=== PATIENT | female | born 1965 | race Caucasian/White ===

== ENCOUNTER → 2021-11-21 | Outpatient (CLI) | payer OTHER | END | disposition home or self-care (01) | LOC: RAH 08:36 | PROVIDERS: ATTEND Urology | DX: N20.0 Calculus of kidney (principal); Z96.0 Presence of urogenital implants | CPT/HCPCS: 74018; 76100 ==

== ENCOUNTER → 2021-12-05 | Outpatient (CLI) | payer OTHER | END | disposition home or self-care (01) | LOC: RAH 09:49 | PROVIDERS: ATTEND Urology | DX: N20.0 Calculus of kidney (principal); N99.528 Other complication of incontinent external stoma of urinary tract | CPT/HCPCS: 74018; 76100 ==

== ENCOUNTER → 2021-12-23 | Outpatient (CLI) | payer OTHER | END | disposition home or self-care (01) | LOC: RAH 08:14 | PROVIDERS: ATTEND Urology | DX: N20.0 Calculus of kidney (principal) | CPT/HCPCS: 74018; 76100 ==

== ENCOUNTER → 2022-01-14 | Outpatient (CLI) | payer OTHER | END | disposition home or self-care (01) | LOC: RAH 10:58 | PROVIDERS: ATTEND Urology | DX: N20.0 Calculus of kidney (principal) | CPT/HCPCS: 74018; 76100 ==

== ENCOUNTER → 2022-04-21 | Outpatient (CLI) | payer OTHER | END | disposition home or self-care (01) | LOC: RAH 08:41 | PROVIDERS: ATTEND Urology | DX: N28.89 Other specified disorders of kidney and ureter (principal); Z98.890 Other specified postprocedural states | CPT/HCPCS: 74018; 76100 ==

== ENCOUNTER → 2022-10-30 | Outpatient (CLI) | payer OTHER | END | disposition home or self-care (01) | LOC: RAH 10-28 09:19 | PROVIDERS: ATTEND Urology | DX: N20.0 Calculus of kidney (principal) | CPT/HCPCS: 74018; 76100 ==

== ENCOUNTER → 2023-06-12 | Outpatient (CLI) | payer OTHER | END | disposition home or self-care (01) | LOC: RAH 11:57 | PROVIDERS: ATTEND Urology | DX: N20.0 Calculus of kidney (principal) | CPT/HCPCS: 74018; 76100 ==

== ENCOUNTER → 2024-08-18 | Outpatient (CLI) | payer OTHER, SELFPAY ==
--- NOTE | 2024-08-18 11:10 | HMCIMG ---
Exam Type: abdomen supine tomograms Tomogram planes done at 10, 11, 12, 13, 14, and 15 cm. Clinical Information: CALCULUS OF KIDNEY Comparison: None. Findings: 12 mm elongated calculus of the left renal lower pole region seen. The limited visualization of the rest of the abdomen structures is unremarkable. Surgical stevenson of the right lower quadrant are seen possibly related to prior appendectomy. Please correlate. IMPRESSION: Left lower pole calculus.
== END | disposition home or self-care (01) ==
LOC: RAH 10:10
PROVIDERS: ATTEND Urology
DX: N20.0 Calculus of kidney (principal)
CPT/HCPCS: 74018; 76100

== ENCOUNTER → 2024-11-17 | Outpatient (CLI) | payer SELFPAY ==
--- NOTE | 2024-11-18 07:32 | HMCIMG ---
EXAM: CR Abdomen (KUB), 1 view. CLINICAL HISTORY: CALCULUS OF KIDNEY. COMPARISON: None provided. FINDINGS: Radio-opaque sutures are seen in right iliac fossa region. Focal opacity is seen in lower pole of left kidney region. - likely calculus should be ruled out with sonography. Nonobstructed nonspecific bowel gas pattern. No free air is evident. No abnormal calcification. No aggressive appearing osseous lesion. IMPRESSION: Radio-opaque sutures are seen in right iliac fossa region. Focal opacity is seen in lower pole of left kidney region - calculus should be ruled out with sonography. /[place]
--- NOTE | 2024-11-18 07:32 | HMCIMG ---
EXAM: CR Abdomen (KUB), 1 view. CLINICAL HISTORY: CALCULUS OF KIDNEY COMPARISON: None provided. FINDINGS: Nonobstructed nonspecific bowel gas pattern. No free air is evident. No abnormal calcification. No aggressive appearing osseous lesion. IMPRESSION: 1. No acute process. /[place]
== END | disposition home or self-care (01) ==
LOC: RAH 09:17
PROVIDERS: ATTEND Urology
DX: N20.0 Calculus of kidney (principal)
CPT/HCPCS: 74018; 76100